=== PATIENT | female | born 1935 | race Hispanic/Latino ===

== ENCOUNTER 2019-02-05 15:03 | Outpatient (CLI) | payer MEDICARE, BC | END 2019-02-05 15:04 | disposition home or self-care (01) | LOC: RAD 15:04 ==

== ENCOUNTER 2019-03-22 15:03 | Outpatient (CLI) | payer MEDICARE, BC | END 2019-03-22 15:04 | disposition home or self-care (01) | LOC: RAD 15:03 | DX: M81.0 Age-related osteoporosis without current pathological fracture (principal) ==